=== PATIENT | male | born 2005 | race African-American/Black ===

== ENCOUNTER 2024-05-23 20:46 | Emergency (ER) | payer MEDICAID ==
[~2024-05-23] VITALS: Ht 167.6 cm; Wt 62.0 kg
[2024-05-23 21:20] VITALS: BP 126/64; RESP 18; TEMP 97.8; O2SAT 96
[2024-05-23 21:24] VITALS: PULSE 89
[2024-05-23 21:51] LABS: HEMATOCRIT 39.2 % (42.0-52.0); HEMOGLOBIN 13.3 g/dL (14.0-18.0); MEAN CORPUSCULAR VOLUME 91.1 fL (80.0-94.0); PLATELET 250 x1000/uL (130-400); RED CELL DISTRIBUTION WIDTH 12.6 % (11.6-14.6); WHITE BLOOD COUNT 9.4 x1000/uL (4.5-11.0)
[2024-05-23 21:55] LABS: CHLORIDE 107 mEq/L (98-107); POTASSIUM 3.7 mEq/L (3.5-5.1); SODIUM 139 mEq/L (136-145)
[2024-05-23 21:56] LABS: CARBON DIOXIDE 27 mEq/L (21-32)
[2024-05-23 21:57] LABS: CALCIUM 9.7 mg/dL (8.7-10.4)
[2024-05-23] MEDS: CEFTRIAXONE SODIUM 500MG VIAL IM ONE (22:00)
[2024-05-23 22:01] LABS: CREATININE 1.1 mg/dL (0.6-1.3); GLUCOSE 86 mg/dL (70-105)
[2024-05-23 22:02] LABS: UREA NITROGEN BLOOD 12 mg/dL (9-23)
[2024-05-23 22:05] LABS: CLARITY URINE CLOUDY (CLEAR); COLOR URINE YELLOW (YELLOW); GLUCOSE URINE NEGATIVE (NEGATIVE); KETONES URINE NEGATIVE (NEGATIVE); LEUKOCYTE ESTERASE URINE 3+ (NEGATIVE); NITRITE URINE NEGATIVE (NEGATIVE); OCCULT BLOOD URINE 1+ (NEGATIVE); PROTEIN URINE NEGATIVE (NEGATIVE); SPECIFIC GRAVITY URINE 1.013 (1.005-1.030); UROBILINOGEN URINE 0.2 E.U./dL (0.2-1.0)
[2024-05-23] MEDS ORDERED: DOXY100C5 MT (22:21)
[2024-05-23 22:31] LABS: BACTERIA URINE TRACE; SQUAMOUS EPITHELIAL CELL URINE FEW /lpf (RARE/1+); WBC URINE 25-50 /hpf (0-2); YEAST URINE 2+
== END 2024-05-23 23:14 | disposition home or self-care (01) ==
LOC: ER 20:46
DX: A64 Unspecified sexually transmitted disease (principal); R30.0 Dysuria
CPT/HCPCS: 99283; 87491; 87591; 80048; 81003; 85027; 87086; 36415; J0696